=== PATIENT | female | born 2000 | race African-American/Black ===

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

== ENCOUNTER 2021-05-29 14:13 | Emergency (ER) | payer MEDICAID ==
[~2021-05-29] VITALS: Ht 160 cm; Wt 83.9 kg
[2021-05-29] MEDS ORDERED: IBUPROFEN 800 MG TAB PO ONE (14:30)
[2021-05-29 14:34] VITALS: BP 117/86
== END 2021-05-30 06:38 | disposition left against medical advice (07) ==
LOC: ER 14:13
DX: S90.01XA Contusion of right ankle, initial encounter (principal); Z79.899 Other long term (current) drug therapy; X50.1XXA Overexertion from prolonged static or awkward postures, initial encounter; Y93.89 Activity, other specified; Y92.89 Other specified places as the place of occurrence of the external cause; Y99.8 Other external cause status
CPT/HCPCS: 73562; 73610